=== PATIENT | male | born 1935 | race Caucasian/White ===

== ENCOUNTER 2017-06-25 12:18 | Emergency (ER) | payer OTHER ==
[~2017-06-25] VITALS: Ht 177.8 cm; Wt 87.1 kg
--- NOTE | 2017-06-25 12:24 | ED ANKLE/FOOT INJURY COMPLAINT ---
History of Present Illness General Chief Complaint: Lower Extremity Problems Stated Complaint: 2ND TOE LACERATION, WONT STOP BLEEDING X 24HRS AGO Source: patient, old records Exam Limitations: no limitations Vital Signs & Intake/Output Vital Signs & Intake/Output Vital Signs Date Time Temp Pulse Resp B/P B/P Pulse O2 O2 Flow FiO2 Mean Ox Delivery Rate 06/25 1225 98.0 74 20 145/74 98 Room Air Allergies Coded Allergies: NO KNOWN ALLERGIES (08/12/14) Reconcile Medications Bethanechol Chloride 50 MG TABLET 1 TAB PO TID UNKNOWN (Reported) Bicalutamide 50 MG TABLET 1 TAB PO DAILY UNKNOWN (Reported) Clopidogrel Bisulfate (Clopidogrel) 75 MG TABLET 1 TAB PO DAILY BLOOD THINNER (Reported) Ezetimibe (Zetia) 10 MG TABLET 1 TAB PO DAILY CHOLESTEROL (Reported) Finasteride 5 MG TABLET 1 TAB PO DAILY PROSTATE (Reported) Lacosamide (Vimpat) 50 MG TABLET 1 TAB PO BID UNKNOWN (Reported) Levetiracetam (Keppra) 750 MG TABLET 2 TAB PO BID SEIZURES (Reported) Metoprolol Tartrate 25 MG TABLET 1 TAB PO BID HEART (Reported) Tamsulosin HCl 0.4 MG CAP.ER.24H 1 CAP PO QPM PROSTATE (Reported) Valsartan 160 MG TABLET 1 TAB PO DAILY HEART (Reported) Triage Nurses Notes Reviewed? yes Occurred: yesterday Duration: day(s): (1), constant Timing: single episode today Severity: mild Severity Numbers: 1 Pain/Injury Location: Left: 2nd toe. Method of Injury: denies No Modifying Factors: none Associated Symptoms: denies HPI: 81-year-old male history of CVA and [place] seizure disorder on Plavix aspirin presents to the ER stating that yesterday afternoon around 3:00 he was cutting his toenails when he accidentally cut part of his skin. He states it's been bleeding since. He denies any other wounds. He denies any gingival bleeding or bruising to his skin. No numbness or tickling to the foot no other modifying factors he's been applying pressure without improvement. Past History Travel History Traveled to [place] past 21 day No Medical History Any Pertinent Medical History? see below for history Neurological: CVA, seizure, TIA Cardiovascular: hypertension, hyperlipidemia, myocardial infarction, mitral regurgitation, MVP PACER/DEFIB Renal: benign prost hyperplasia Musculoskeletal: chronic back pain Surgical History Surgical History: PACER/DEFIB CHILD FOOT SX Psychosocial History What is your primary language [place] Family History Hx Contributory? No Review of Systems Review of Systems Constitutional: Reports: see HPI. Comments Review of systems: See HPI, All other systems negative. Constitutional, no chills no fever HEENT: no sore throat no congestion, Cardiovascular: No chest pain , no palpitation Skin: no rashes, no change in skin Respiratory: No dyspnea no cough GI: No nausea no vomiting, Muscle skeletal: No joint pain, no back pain Neurologic: , no headache Heme/endocrine: No bruising Physical Exam Physical Exam General Appearance: well developed/nourished, no apparent distress, alert, awake Leg/Knee/Thigh Left: normal range of motion Comments: Well-developed well-nourished patient in no apparent distress. HEENT: Atraumatic, extraocular motion intact Neck: Supple, FROM Back: FROM Respiratory: No respiratory distress. Patient speaking in full complete sentences Extremities: full range of motion Neuro: awake, alert, and oriented to person, place and time. There were no obvious focal neurologic abnormalities. Skin: Small superficial skin avulsion noted to the distal aspect of the left second toe, no active bleeding. The rest the foot is atraumatic, sensation is within normal limits capillary refill within normal limits Warm & dry;No appreciable rash on exposed skin Psych: Mood affect normal, normal memory normal judgment. Progress Differential Diagnosis: cellulitis, fracture, dislocation, sprain, contusion Plan of Care: Wound thoroughly irrigated with normal saline and Betadine peroxide. Dermabond, Surgicel applied sterile dressing applied and discussed the patient and his plan of care they feel comfortable with plan there is no active bleeding at this time cleared for discharge Departure Departure Time of Disposition: 6877 Disposition: HOME OR SELF CARE Condition: Stable Clinical Impression Primary Impression: Skin avulsion Referrals: Leah DEJESUS,Delmar Araiza (PCP/Family) Dave TAYLOR,Harry Additional Instructions: Keep dressing in place as discussed for a full 24 hours. Apply bacitracin Neosporin as discussed. Follow-up with your primary care physician or return to ER with any concerns or signs of infection: Redness warmth swelling discharge fever chills. Follow-up with sheet manager Dr. Acosta as discussed Departure Forms: Customer Survey General Discharge Information
[2017-06-25 12:25] VITALS: BP 145/74
[2017-06-25] MEDS ORDERED: BETHANECHOL PO (12:48)
[2017-06-25] MEDS ORDERED: METOPROLOL TART25 M1 PO (12:49)
[2017-06-25] MEDS ORDERED: KEPPRA750 M1 PO (12:49)
[2017-06-25] MEDS ORDERED: FINASTERIDE5 M1 PO (12:50)
[2017-06-25] MEDS ORDERED: BICALUTAMIDE50 M1 PO (12:50)
[2017-06-25] MEDS ORDERED: VALSARTAN160 M1 PO (12:50)
[2017-06-25] MEDS ORDERED: CLOPIDOGREL75 M1 PO (12:51)
[2017-06-25] MEDS ORDERED: VIMPAT50 M1 PO (12:51)
[2017-06-25] MEDS ORDERED: ZETIA10 M1 PO (12:51)
[2017-06-25] MEDS ORDERED: TAMSULOSIN HCL0.4 M1 PO (12:52)
== END 2017-06-25 12:54 ==
LOC: ERH 12:18
DX: S91.115A Laceration without foreign body of left lesser toe(s) without damage to nail, initial encounter (principal); W45.8XXA Other foreign body or object entering through skin, initial encounter; Y92.9 Unspecified place or not applicable; Y93.9 Activity, unspecified